=== PATIENT | male | born 1970 | race Caucasian/White ===

== ENCOUNTER 2022-05-13 17:20 | Emergency (ER) | payer BC, OTHER ==
[2022-05-13 17:32] VITALS: BP 171/109
[2022-05-13] MEDS ORDERED: morphine INJ 10 MG/ML 1ML (SYR OR VIAL) IVP STA (17:39)
[2022-05-13] MEDS ORDERED: LACTATED RINGERS 1,000 ML IV STA (17:39)
[2022-05-13] MEDS ORDERED: TAMSULOSIN 0.4 MG (FLOMAX) CAP PO STA (17:39)
--- NOTE | 2022-05-13 17:39 | ED GU-Male ---
General Chief Complaint: - Reproductive Stated Complaint: RT FLANK/RT ABD PAIN Source: patient Exam Limitations: no limitations History of Present Illness Date Seen by Provider: May 13, 2022 Time Seen by Provider: 17:25 Initial Comments 51-year-old male with past medical history of kidney stones coming in due to right flank pain that started couple hours ago, sharp, severe, intermittent, with associated nausea but no vomiting. It starts in his right flank and radiates to his right groin which is pretty typical for him. He says it feels like prior kidney stones. Last kidney stone that he passed was around 2 weeks ago. He is from [place] and has a urologist there. He was in town for his son's baseball game, and has no medications that he was able to take. Denies any diarrhea, fever, chest pain, shortness of breath, rash, dysuria, hematuria, or any other concerns He has never required any type of urologic procedure, and always passes the stone by himself. Allergies and Home Medications Allergies Coded Allergies: No Known Drug Allergies (Unverified , 05/13/22) Patient Home Medication List Home Medication List Reviewed: Yes Ibuprofen (Ibuprofen) 600 Mg Tablet, 600 MG PO Q6H PRN for PAIN-MILD Prescribed by: NORMAN WALKER on 05/13/221854 Ondansetron (Ondansetron Odt) 4 Mg Tab.rapdis, 4 MG PO Q6H PRN for NAUSEA/VOMITING-1ST LINE Prescribed by: NORMAN WALKER on 05/13/221854 Oxycodone HCl (Oxycodone HCl) 5 Mg Tablet, 5 MG PO Q6H PRN for PAIN-SEVERE (8- 10) Prescribed by: NORMAN WALKER on 05/13/221854 Tamsulosin HCl (Flomax) 0.4 Mg Cap, 0.4 MG PO DAILY Prescribed by: NORMAN WALKER on 05/13/221854 Review of Systems Review of Systems Constitutional: No fever EENTM: No blurred vision Respiratory: No cough, No short of breath Cardiovascular: No chest pain Gastrointestinal: No abdominal pain; nausea; No vomiting Genitourinary: flank pain Musculoskeletal: no symptoms reported Skin: no symptoms reported Psychiatric/Neurological: No Symptoms Reported Endocrine: No Symptoms Reported Hematologic/Lymphatic: No Symptoms Reported All Other Systemes Reviewed Negative Unless Noted: Yes Past Rlzdebu-Xfgolm-Ebsjzr Hx Patient Social History Tobacco Use?: No Substance use?: No Alcohol Use?: No Past Medical History Surgeries: No Physical Exam Vital Signs Vital Signs - First Documented 05/13/22 17:32 Temp 36.2 Pulse 82 Resp 18 B/P (MAP) 171/109 (129) Pulse Ox 99 O2 Delivery Room Air Capillary Refill : Height, Weight, BMI Height: '" Weight: lbs. oz. kg; BMI Method: General Appearance: WD/WN, mild distress HEENT: PERRL/EOMI, normal ENT inspection, pharynx normal Neck: non-tender, full range of motion, supple, normal inspection Cardiovascular: regular rate, rhythm, no edema, no murmur Respiratory: chest non-tender, lungs clear, normal breath sounds, no respiratory distress, no accessory muscle use Gastrointestinal: normal bowel sounds, non tender, soft; No distended, No guarding, No rebound Back: normal inspection, no vertebral tenderness, CVA tenderness (R); No CVA tenderness (L) Extremities: normal range of motion, non-tender, normal inspection, no pedal edema, no calf tenderness, normal capillary refill Neurologic/Psychiatric: no motor/sensory deficits, alert, normal mood/affect Skin: normal color, warm/dry Lymphatic: no adenopathy Progress/Results/Core Measures Suspected Sepsis SIRS Temperature: Pulse: Respiratory Rate: Laboratory Tests 05/13/22 17:35: White Blood Count 11.1H Blood Pressure / Mean: Laboratory Tests 05/13/22 17:35: Creatinine 1.55H, Platelet Count 336, Total Bilirubin 0.3 Results/Orders Lab Results Laboratory Tests Test 05/13/22 17:35 05/13/22 19:15 Range/Units White Blood Count 11.1 H 4.3-11.0 10^3/uL Red Blood Count 4.93 4.30-5.52 10^6/uL Hemoglobin 14.7 13.3-17.7 g/dL Hematocrit 43 40-54 % Mean Corpuscular Volume 87 80-99 fL Mean Corpuscular Hemoglobin 30 25-34 pg Mean Corpuscular Hemoglobin Concent 34 32-36 g/dL Red Cell Distribution Width 12.5 10.0-14.5 % Platelet Count 336 130-400 10^3/uL Mean Platelet Volume 8.9 L 9.0-12.2 fL Immature Granulocyte % (Auto) 0 % Neutrophils (%) (Auto) 64 42-75 % Lymphocytes (%) (Auto) 27 12-44 % Monocytes (%) (Auto) 8 0-12 % Eosinophils (%) (Auto) 1 0-10 % Basophils (%) (Auto) 0 0-10 % Neutrophils # (Auto) 7.2 1.8-7.8 10^3/uL Lymphocytes # (Auto) 3.0 1.0-4.0 10^3/uL Monocytes # (Auto) 0.8 0.0-1.0 10^3/uL Eosinophils # (Auto) 0.1 0.0-0.3 10^3/uL Basophils # (Auto) 0.1 0.0-0.1 10^3/uL Immature Granulocyte # (Auto) 0.0 0.0-0.1 10^3/uL Sodium Level 142 135-145 MMOL/L Potassium Level 4.2 3.6-5.0 MMOL/L Chloride Level 104 98-107 MMOL/L Carbon Dioxide Level 27 21-32 MMOL/L Anion Gap 11 5-14 MMOL/L Blood Urea Nitrogen 20 H 7-18 MG/DL Creatinine 1.55 H 0.60-1.30 MG/DL Estimat Glomerular Filtration Rate 54 BUN/Creatinine Ratio 13 Glucose Level 132 H 70-105 MG/DL Calcium Level 9.4 8.5-10.1 MG/DL Corrected Calcium 8.5-10.1 MG/DL Total Bilirubin 0.3 0.1-1.0 MG/DL Aspartate Amino Transf (AST/SGOT) 22 5-34 U/L Alanine Aminotransferase (ALT/SGPT) 28 0-55 U/L Alkaline Phosphatase 88 40-136 U/L Total Protein 7.6 6.4-8.2 GM/DL Albumin 4.9 H 3.2-4.5 GM/DL Urine Color YELLOW Urine Clarity CLEAR Urine pH 5.5 5-9 Urine Specific [place] >=1.030 1.016-1.022 Urine Protein TRACE H NEGATIVE Urine Glucose (UA) NEGATIVE NEGATIVE Urine Ketones TRACE H NEGATIVE Urine Nitrite NEGATIVE NEGATIVE Urine Bilirubin NEGATIVE NEGATIVE Urine Urobilinogen 0.2 < = 1.0 MG/DL Urine Leukocyte Esterase NEGATIVE NEGATIVE Urine RBC (Auto) 3+ H NEGATIVE Urine RBC 50-100 H /HPF Urine WBC 0-2 /HPF Urine Squamous Epithelial Cells NONE /HPF Urine Crystals NONE /LPF Urine Bacteria TRACE /HPF Urine Casts NONE /LPF Urine Mucus MODERATE H /LPF Urine Culture Indicated NO My Orders Orders - NORMAN WALKER MD Cbc With Automated Diff (05/13/22 17:39) Comprehensive Metabolic Panel (05/13/22 17:39) Ua Culture If Indicated (05/13/22 17:39) Ct Abdomen/Pelvis Wo (05/13/22 17:39) Ketorolac Injection (Toradol Injection) (05/13/22 17:45) Ondansetron Injection (Zofran Injectio (05/13/22 17:45) Morphine Injection (Morphine Injection (05/13/22 17:39) Lactated Ringers (Lr 1000 Ml Iv Solution (05/13/22 17:39) Tamsulosin Capsule (Flomax Capsule) (05/13/22 17:39) Rx-Hydrocodone/Apap 5-325 Mg (Rx-Vicodin (05/13/22 19:00) Rx-Ondansetron Po (Rx-Zofran Po) (05/13/22 18:55) Medications Given in ED Current Medications Medications Dose Ordered Sig/Lillian Route Start Time Stop Time Status Last Admin Dose Admin Ketorolac Tromethamine 15 mg ONCE ONCE IVP 05/13/22 17:45 05/13/22 17:46 DC 05/13/22 17:47 15 MG Ondansetron HCl 4 mg ONCE ONCE IVP 05/13/22 17:45 05/13/22 17:46 DC 05/13/22 17:47 4 MG Vital Signs/I&O 05/13/22 17:32 Temp 36.2 Pulse 82 Resp 18 B/P (MAP) 171/109 (129) Pulse Ox 99 O2 Delivery Room Air Capillary Refill : Progress Note : Progress Note 51-year-old male with above history coming in due to right flank pain. ABCs were intact and vitals were stable on presentation. Physical exam with right flank pain. Physical labs reassuring, creatinine 1.5 with no prior baseline. He does have right-sided hydronephrosis with ureterolithiasis on CT. Given IV Toradol and morphine with significant improvement in his pain. Will give him some medicines for symptomatic treatment at home. He will follow-up with his urologist at home Diagnostic Imaging Diagonstic Imaging: CT (abd/pelv) Comments [facility] [place], [place] NAME: DMITRY ESTRELLA [facility] REC#: [id number] PT STATUS: REG ER : 1970 PHYSICIAN: NORMAN WALKER MD ADMIT DATE: 05/13/22/ER FS Draft Date of Exam:05/13/22 CT ABDOMEN/PELVIS WO PROCEDURE: CT abdomen and pelvis without contrast. TECHNIQUE: Multiple contiguous axial images were obtained through the abdomen and pelvis without the use of intravenous contrast. Auto Exposure Controls were utilized during the CT exam to meet ALARA standards for radiation dose reduction. INDICATION: Right-sided flank pain. COMPARISON: None. FINDINGS: The heart is unremarkable. Small amount of dependent opacities are seen in the lung bases. Calculus is seen in the distal right ureter just proximal to the right UVJ measuring 0.3 cm. There is mild to moderate right-sided hydronephrosis. Bilateral nonobstructing calculi are seen measuring up to 1.2 cm on the right and 1.3 cm on the left. Bilateral cortical cysts are visualized. The urinary bladder is nondistended. There is prostatomegaly. The liver, spleen, pancreas and adrenal glands have a normal noncontrast CT appearance. The gallbladder is nondistended. There is no pathologically enlarged mesenteric or retroperitoneal adenopathy. The stomach is distended with ingested contents. Mildly distended fluid-filled loops of small bowel are seen in the right hemiabdomen. The appendix is visualized in the right lower quadrant and has a normal appearance. Scattered diverticula are seen in the descending and sigmoid colon without evidence of acute diverticulitis. There is no free fluid or free air. No acute osseous abnormalities. There is no free air, loculated collection or adenopathy in the pelvis. IMPRESSION: 1. Obstructing calculus in the distal right ureter measuring 0.3 cm with mild to moderate right-sided hydroureteronephrosis. Additional bilateral nonobstructing calculi are seen. 2. Distended stomach, which may represent recent meal versus gastritis. Additional mildly distended fluid-filled loops of small bowel are seen in the right hemiabdomen suggestive of enteritis. No free fluid or free air. 3. Scattered diverticula without evidence of acute diverticulitis. Dictated on workstation # [id number] Dict: 05/13/221836 Trans: 05/13/221845 [facility] [id number] Interpreted by: HARSHA PIÑA DO Electronically signed by: Departure Impression Primary Impression: Ureterolithiasis Disposition: HOME, SELF-CARE Condition: Stable Departure-Patient Inst. Decision time for Depature: 19:30 Referrals: NO,LOCAL PHYSICIAN (PCP/Family) Primary Care Physician Patient Instructions: Kidney Stone, Adult ED Add. Discharge Instructions: You have a 0.3 cm kidney stone on the right which is blocking your urine out causing pain. Nausea and pain medicines were sent to [facility] in [place]. Follow-up with your urologist if not improving Scripts Ondansetron (Ondansetron Odt) 4 Mg Tab.rapdis 4 MG PO Q6H PRN for NAUSEA/VOMITING-1ST LINE for 5 Days, #20 TAB Prov: NORMAN WALKER MD 05/13/22 Tamsulosin HCl (Flomax) 0.4 Mg Cap 0.4 MG PO DAILY for 14 Days, #14 CAP Prov: NORMAN WALKER MD 05/13/22 Ibuprofen (Ibuprofen) 600 Mg Tablet 600 MG PO Q6H PRN for PAIN-MILD for 5 Days, #20 TAB Prov: NORMAN WALKER MD 05/13/22 Oxycodone HCl (Oxycodone HCl) 5 Mg Tablet 5 MG PO Q6H PRN for PAIN-SEVERE (8-10) for 3 Days, #12 TAB Prov: NORMAN WALKER MD 05/13/22 Work/School Note: Work Release Form Date Seen in the Emergency Department: May 13, 2022 Return to Work: May 15, 2022 Restrictions: No Restrictions NORMAN WALKER MD May 13, 2022 17:39
[2022-05-13 17:44] LABS: BASOPHILS # (AUTO) 0.1 10^3/uL (0.0-0.1); BASOPHILS % (AUTO) 0 % (0-10); EOSINOPHILS # (AUTO) 0.1 10^3/uL (0.0-0.3); EOSINOPHILS % (AUTO) 1 % (0-10); HEMATOCRIT 43 % (40-54); HEMOGLOBIN 14.7 g/dL (13.3-17.7); LYMPHOCYTES % (AUTO) 27 % (12-44); MEAN CORPUSCULAR HEMOGLOBIN 30 pg (25-34); MEAN CORPUSCULAR HGB CONC 34 g/dL (32-36); MEAN CORPUSCULAR VOLUME 87 fL (80-99); MEAN PLATELET VOLUME 8.9 fL (9.0-12.2); MONOCYTES # (AUTO) 0.8 10^3/uL (0.0-1.0); MONOCYTES % (AUTO) 8 % (0-12); NEUTROPHILS # (AUTO) 7.2 10^3/uL (1.8-7.8); NEUTROPHILS % (AUTO) 64 % (42-75); PLATELET COUNT 336 10^3/uL (130-400); WHITE BLOOD COUNT 11.1 10^3/uL (4.3-11.0)
[2022-05-13] MEDS ORDERED: ONDANSETRON 4 MG/2 ML (SDV) Z0FRAN IVP ONE (17:45)
[2022-05-13] MEDS ORDERED: KETOROLAC 30 MG/ML VIAL IVP ONE (17:45)
[2022-05-13 17:57] LABS: ALANINE AMINOTRANSFERASE 28 U/L (0-55); ALBUMIN 4.9 GM/DL (3.2-4.5); ALKALINE PHOSPHATASE 88 U/L (40-136); BILIRUBIN,TOTAL 0.3 MG/DL (0.1-1.0); BUN/CREATININE RATIO 13; CALCIUM 9.4 MG/DL (8.5-10.1); CARBON DIOXIDE 27 MMOL/L (21-32); CHLORIDE 104 MMOL/L (98-107); CREATININE SERUM 1.55 MG/DL (0.60-1.30); GFR ESTIMATED 54; GLUCOSE 132 MG/DL (70-105); POTASSIUM 4.2 MMOL/L (3.6-5.0); SODIUM 142 MMOL/L (135-145); TOTAL PROTEIN 7.6 GM/DL (6.4-8.2)
--- NOTE | 2022-05-13 18:47 | Diagnostic Imaging Report ---
PROCEDURE: CT abdomen and pelvis without contrast. TECHNIQUE: Multiple contiguous axial images were obtained through the abdomen and pelvis without the use of intravenous contrast. Auto Exposure Controls were utilized during the CT exam to meet ALARA standards for radiation dose reduction. INDICATION: Right-sided flank pain. COMPARISON: None. FINDINGS: The heart is unremarkable. Small amount of dependent opacities are seen in the lung bases. Calculus is seen in the distal right ureter just proximal to the right UVJ measuring 0.3 cm. There is mild to moderate right-sided hydronephrosis. Bilateral nonobstructing calculi are seen measuring up to 1.2 cm on the right and 1.3 cm on the left. Bilateral cortical cysts are visualized. The urinary bladder is nondistended. There is prostatomegaly. The liver, spleen, pancreas and adrenal glands have a normal noncontrast CT appearance. The gallbladder is nondistended. There is no pathologically enlarged mesenteric or retroperitoneal adenopathy. The stomach is distended with ingested contents. Mildly distended fluid-filled loops of small bowel are seen in the right hemiabdomen. The appendix is visualized in the right lower quadrant and has a normal appearance. Scattered diverticula are seen in the descending and sigmoid colon without evidence of acute diverticulitis. There is no free fluid or free air. No acute osseous abnormalities. There is no free air, loculated collection or adenopathy in the pelvis. IMPRESSION: 1. Obstructing calculus in the distal right ureter measuring 0.3 cm with mild to moderate right-sided hydroureteronephrosis. Additional bilateral nonobstructing calculi are seen. 2. Distended stomach, which may represent recent meal versus gastritis. Additional mildly distended fluid-filled loops of small bowel are seen in the right hemiabdomen suggestive of enteritis. No free fluid or free air. 3. Scattered diverticula without evidence of acute diverticulitis. Dictated by: Dictated on workstation # [id number]
[2022-05-13] MEDS ORDERED: TMSL.4C PO (18:55)
[2022-05-13] MEDS ORDERED: IBUP-1773 PO (18:55)
[2022-05-13] MEDS ORDERED: RX-ONDANSETRON 4 MG ODT (ZOFRAN) PPK #4 PO STA (18:55)
[2022-05-13] MEDS ORDERED: ONDA4TAB11 PO (18:55)
[2022-05-13] MEDS ORDERED: OXYC5TAB PO (18:55)
[2022-05-13 19:19] LABS: BILIRUBIN,URINE NEGATIVE (NEGATIVE); CLARITY,URINE CLEAR; COLOR,URINE YELLOW; GLUCOSE, URINE (UA) NEGATIVE (NEGATIVE); KETONES,URINE TRACE (NEGATIVE); LEUKOCYTE ESTERASE ,URINE NEGATIVE (NEGATIVE); NITRITE,URINE NEGATIVE (NEGATIVE); PH,URINE 5.5 (5-9); PROTEIN,URINE TRACE (NEGATIVE)
[2022-05-13 19:23] LABS: BACTERIA,URINE TRACE /HPF; RBC,URINE 50-100 /HPF; WBC,URINE 0-2 /HPF
== END 2022-05-13 19:36 | disposition home or self-care (01) ==
LOC: ER FS 17:22
DX: N13.2 Hydronephrosis with renal and ureteral calculous obstruction (principal)
CPT/HCPCS: 36415; 74176; 80053; 81000; 85025